=== PATIENT | female | born 1990 | race Caucasian/White ===

== ENCOUNTER 2018-10-16 13:17 | Outpatient (CLI) | payer OTHER | END 2018-10-16 13:18 | disposition home or self-care (01) | LOC: CTENTCT 13:17 | PROVIDERS: ATTEND Otolaryngology Plastic Surgery within the Head & Neck | DX: J01.81 Other acute recurrent sinusitis (principal) | CPT/HCPCS: 70486 ==

== ENCOUNTER 2018-10-22 06:52 | Day surgery (SDC) | payer OTHER ==
[2018-10-21 09:44] VITALS: BMI 27.4
[2018-10-22] MEDS ORDERED: Oxymetazoline HCl 0.05% ( 15 ML ) ONE ×2 (07:41→08:50)
[2018-10-22 07:47] LABS: BHCG - Serum Negative (NEGATIVE); Pregs Control Background? CLEAR/WHITE (CLR/WHITE); Pregs Control Bar Appear? YES (CONTROL BAR)
[2018-10-22] MEDS ORDERED: Fentanyl 100 MCG/2 ML VIAL ONE ×2 (08:44→09:50)
[2018-10-22] MEDS ORDERED: Midazolam HCl 2 mg/2 ml Vial ONE (08:44)
[2018-10-22] MEDS ORDERED: Lidocaine 1% w/Epinephrine 1:100K 20 ML VIAL ONE (08:50)
[2018-10-22] MEDS ORDERED: Bacitracin Zinc Ointment 30 gm TUBE ONE (08:50)
[2018-10-22] MEDS ORDERED: Rocuronium Bromide 10 MG/ML (10ML VIAL) ONE (15:03)
[2018-10-22] MEDS ORDERED: Lidocaine 1% PF 5 ML VIAL ONE (15:03)
[2018-10-22] MEDS ORDERED: Dexamethasone 20 MG/5 ML VIAL ONE (15:03)
[2018-10-22] MEDS ORDERED: Ondansetron PF 4 MG/2 ML Vial ONE (15:03)
[2018-10-22] MEDS ORDERED: PROPOFOL 200 MG/20 ML VIAL ONE (15:03)
[2018-10-22] MEDS ORDERED: ePHEDrine 50 MG/ML VIAL ONE (15:03)
[2018-10-22] MEDS ORDERED: Glycopyrrolate 0.2 MG/ML 5 ML SYRINGE ONE (15:03)
--- NOTE | 2018-10-23 11:20 | OP ---
DATE OF PROCEDURE: 10/22/2018 PREOPERATIVE DIAGNOSES: 1. Chronic rhinosinusitis. 2. Nasal septal deviation. 3. Bilateral inferior turbinate hypertrophy. 4. Nasal obstruction. POSTOPERATIVE DIAGNOSES: 1. Chronic rhinosinusitis. 2. Nasal septal deviation. 3. Bilateral inferior turbinate hypertrophy. 4. Nasal obstruction. PROCEDURES PERFORMED: 1. Bilateral endoscopic sinus surgery, total ethmoidectomies. 2. Bilateral endoscopic sinus surgery, maxillary antrostomies. 3. Bilateral endoscopic sinus surgery, frontal sinusotomies. 4. Nasal septoplasty. 5. Bilateral inferior turbinate submucosal resection. ESTIMATED BLOOD LOSS: 20 mL. COMPLICATIONS: None. ANESTHESIA: GETA. DESCRIPTION OF PROCEDURE: The patient was taken to the operating room and placed supine on the table. General endotracheal anesthesia was obtained by the anesthesia staff. Tube was secured in the left lower lip. Patient was then placed in the beach chair position, and Afrin pledgets were placed in the nasal cavity. Injections of 1% lidocaine with 1:100,000 epinephrine were made into the nasal septum as well as the inferior turbinates. Patient was then prepped and draped in standard surgical fashion for nasal surgery. Following this, the Afrin pledgets were removed. A Commack incision was made on the left nasal septum. Submucoperichondrial dissection was performed. The deviated portions of the septum included portions of the cartilage and the bony septum. These isolated areas were removed using 3 cutting rongeurs. There was noted to be a large dorsal and caudal strut, left intact for support of the nose. The mucoperichondrial flaps were then reapproximated using a 4-0 gut stitch. Any straight pieces of cartilage were crushed prior to this and placed between the mucoperichondrial flaps. Following this, the inferior turbinates were then punctured with a submucosal coblation wand, and submucosal coblations were performed of multiple areas of the inferior portion of the anterior inferior turbinate. The submucosal microdebrider was used to submucosally resect the anterior and inferior portions of the inferior turbinates bilaterally. Following this, inferior turbinates were gently laterally fractured using a Fairview elevator. Following this, a 0 degree endoscope was advanced into the middle meatus. Middle turbinates were gently medialized using a Fairview elevator. The uncinate process was visualized bilaterally and was anteriorly fractured using a ball-ended probe bilaterally. Following this, the uncinate process was removed using the 0 degree microdebrider and the up-biting Blakesley forceps. Following this, the natural maxillary sinus ostia was gently palpated and identified using a ball-ended probe bilaterally. Following this, the natural maxillary sinus ostia was widened using the curved microdebrider and straight Blakesley forceps bilaterally. Following this, the ethmoidal bulla was identified bilaterally and was punctured on its medial and inferior aspect with the microdebrider bilaterally. Following this, the ethmoidal bulla was removed using the 0 degree microdebrider and upbiting Blakesley forceps. Following this, the grand lamella was identified bilaterally and was punctured using the microdebrider into the posterior ethmoidal cells. Working from posterior to anterior, the ethmoidal cells were opened. Following this, the 45-degree endoscope and the 40-degree curved microdebrider blade were used to further open the anterior ethmoidal cells and identify and widen the frontal sinus ostia bilaterally. Following this, the nasal cavity was irrigated. Mirapex was placed within the middle meatus. Dean splints were placed and secured. The patient tolerated the procedure well. Job ID: [id number]
== END 2018-10-22 11:40 | disposition home or self-care (01) ==
LOC: SDC 06:52
PROVIDERS: ATTEND Otolaryngology Plastic Surgery within the Head & Neck
PROC: 099 Ear, Nose, Sinus, Drainage (ICD-10-PCS; principal; 2018-10-22)
PROC: 09TV8ZZ Resection of Left Ethmoid Sinus, Via Natural or Artificial Opening Endoscopic (ICD-10-PCS; principal; 2018-10-22)
PROC: 099 Ear, Nose, Sinus, Drainage (ICD-10-PCS; principal; 2018-10-22)
PROC: 09TU8ZZ Resection of Right Ethmoid Sinus, Via Natural or Artificial Opening Endoscopic (ICD-10-PCS; principal; 2018-10-22)
PROC: 09TL7ZZ Resection of Nasal Turbinate, Via Natural or Artificial Opening (ICD-10-PCS; principal; 2018-10-22)
PROC: 099Q7ZZ Drainage of Right Maxillary Sinus, Via Natural or Artificial Opening (ICD-10-PCS; principal; 2018-10-22)
PROC: 099R7ZZ Drainage of Left Maxillary Sinus, Via Natural or Artificial Opening (ICD-10-PCS; principal; 2018-10-22)
PROC: 09SM0ZZ Reposition Nasal Septum, Open Approach (ICD-10-PCS; principal; 2018-10-22)
DX: J32.9 Chronic sinusitis, unspecified (principal); J34.2 Deviated nasal septum; J34.3 Hypertrophy of nasal turbinates; J34.89 Other specified disorders of nose and nasal sinuses; F32.9 Major depressive disorder, single episode, unspecified; E78.00 Pure hypercholesterolemia, unspecified; F41.9 Anxiety disorder, unspecified; Z79.899 Other long term (current) drug therapy
CPT/HCPCS: 36415; 84703; 85014; J0131; J1100; J2001; J2250; J2405; J2704; J3010; J3490

== ENCOUNTER 2020-05-28 11:37 | Emergency (ER) | payer OTHER, SELFPAY ==
--- NOTE | 2020-05-28 12:32 | RAD ---
EXAM: 3 views of the right index finger HISTORY: Penetrating injury with a piece of wire to the index finger COMPARISON: None FINDINGS: There is no evidence of acute fracture or dislocation. Mild diffuse soft tissue swelling is seen. No degenerative changes are present. No radiopaque foreign body is seen. IMPRESSION: No evidence of acute osseous abnormality.
== END 2020-05-28 13:51 | disposition home or self-care (01) ==
LOC: ERS 11:37
DX: M79.89 Other specified soft tissue disorders (principal); F41.9 Anxiety disorder, unspecified; Z87.891 Personal history of nicotine dependence; Z79.899 Other long term (current) drug therapy; W22.8XXA Striking against or struck by other objects, initial encounter; Y99.0 Civilian activity done for income or pay

== ENCOUNTER 2020-07-26 07:34 | Outpatient (CLI) | payer OTHER ==
--- NOTE | 2020-07-26 09:27 | MRI ---
EXAM: MRI right index digit without contrast PROVIDED CLINICAL HISTORY: Cellulitis COMPARISON: None FINDINGS: The dorsal extensor and volar flexor tendons demonstrate an intact MR appearance. There is no signifi cant regional tenosynovial fluid. No regional joint effusion is evident. Regional marrow signal appears normal. Evaluation for abscess is limited in the absence of IV contrast material. There is no definite evidence for focal fluid collection. Signal alteration involving the subcutaneous adipose layer at the volar aspect of the midportion of the index digit compatible with the provided clinical history of cellulitis. IMPRESSION: No MR evidence for osteomyelitis or abscess, with limitations due to lack of IV contrast.
== END 2020-07-26 07:35 | disposition home or self-care (01) ==
LOC: TBSIIMAG 07:34
PROVIDERS: ATTEND Nurse Practitioner Family
DX: L03.011 Cellulitis of right finger (principal)